=== PATIENT | female | born 1975 | race Caucasian/White ===

== ENCOUNTER 2016-08-03 23:23 | Emergency (ER) | payer OTHER ==
[~2016-08-03] VITALS: Ht 162.6 cm; Wt 81.6 kg
[2016-08-03 23:32] VITALS: BP_SYST 116
[2016-08-04] MEDS ORDERED: DIPHENHYDRAMINE HCL 25 MG CAPSULE PO ONE
[2016-08-04] MEDS ORDERED: CEPHALEXIN 500 MG CAPSULE PO ONE
[2016-08-04] MEDS ORDERED: ACETAMINOPHEN/CODEINE 300 MG-30 MG TABLET PO ONE
[2016-08-04 00:11] VITALS: BP_SYST 118
== END 2016-08-04 00:13 | disposition home or self-care (01) ==
LOC: SED 23:23
DX: S90.862A Insect bite (nonvenomous), left foot, initial encounter (principal); L03.116 Cellulitis of left lower limb; F17.210 Nicotine dependence, cigarettes, uncomplicated; W57.XXXA Bitten or stung by nonvenomous insect and other nonvenomous arthropods, initial encounter; Y93.89 Activity, other specified; Y92.89 Other specified places as the place of occurrence of the external cause; Y99.8 Other external cause status
CPT/HCPCS: 81025; 99284; Q0163